=== PATIENT | male | born 1995 | race American Indian/Alaskan Native ===

== ENCOUNTER 2018-03-13 13:43 | Emergency (ER) | payer MEDICAID ==
[2018-03-13] MEDS ORDERED: ROCEPHIN IM ONE (16:23)
[2018-03-13] MEDS ORDERED: XYLOCAINE 1% MPF 5 mL INFILTRATI ONE (16:23)
[2018-03-13] MEDS ORDERED: FLAGYL PO ONE (16:23)
[2018-03-13] MEDS ORDERED: ZITHROMAX PO ONE (16:23)
--- NOTE | 2018-03-13 16:31 | Emergency Department Report ---
ED Male HPI - General Chief complaint: Medical Clearance Stated complaint: STD CHECK Time Seen by Provider: 03/13/18 16:17 Source: patient Mode of arrival: Ambulatory Limitations: No Limitations - History of Present Illness Initial comments: 22-year-old -[place] male comes in for complaint of penile discharge is white thick noticed sent toilet. He also complains of urinary urgency that he' s had over couple of weeks. He does admit to dysuria. He is sexually active with women unprotected for partners in the last 6 months no history of STDs. He does admit to oral sex. Has not had a HIV test. Patient reports no past medical history currently takes no medications has allergy to penicillin unknown. MD Complaint: penile discharge, dysuria -: days(s) (7 . On discharge), week(s) (couple weeks for urinary urgency) Location: penis Radiation: none Severity scale (0 -10): 0 Quality: burning Consistency: intermittent Improves with: none Worsens with: urination discharge. denies: swelling, mass, urinary retention, fever, nausea/vomiting, incontinence - Related Data Sexually active: Yes (with women for partners unprotected last 6 months) Previous Rx's Medication Instructions Recorded Last Taken Type Cephalexin [Keflex] 500 mg PO BID #14 capsule 03/13/18 Unknown Rx Allergies Allergy/AdvReac Type Severity Reaction Status Date / Time Penicillins Allergy Unknown Verified 03/13/18 14:11 ED Review of Systems ROS: Stated complaint: STD CHECK Other details as noted in HPI Constitutional: denies: chills, fever Eyes: denies: eye pain, eye discharge, vision change ENT: denies: ear pain, throat pain Respiratory: denies: cough, shortness of breath, wheezing Cardiovascular: denies: chest pain, palpitations Endocrine: no symptoms reported Gastrointestinal: denies: abdominal pain, nausea, diarrhea Genitourinary: urgency, dysuria, discharge Musculoskeletal: denies: back pain, joint swelling, arthralgia Skin: denies: rash, lesions Neurological: denies: headache, weakness, paresthesias Psychiatric: denies: anxiety, depression Hematological/Lymphatic: denies: easy bleeding, easy bruising ED Past Medical Hx - Social History Smoking Status: Current Every Day Smoker - Medications Home Medications: Home Medications Medication Instructions Recorded Confirmed Last Taken Type Cephalexin [Keflex] 500 mg PO BID #14 capsule 03/13/18 Unknown Rx ED Physical Exam - General Limitations: No Limitations General appearance: alert, in no apparent distress - Head Head exam: Present: atraumatic, normocephalic - Eye Eye exam: Present: normal appearance - ENT ENT exam: Present: mucous membranes moist - Neck Neck exam: Present: normal inspection - exam: Present: normal inspection - Extremities Exam Extremities exam: Present: normal inspection - Back Exam Back exam: Present: normal inspection - Neurological Exam Neurological exam: Present: alert, oriented X3 - Psychiatric Psychiatric exam: Present: normal affect, normal mood - Skin Skin exam: Present: warm, dry, intact, normal color. Absent: rash ED Course Vital Signs 03/13/18 14:07 Temperature 98.7 F Pulse Rate 52 L Respiratory 18 Rate Blood Pressure 123/74 O2 Sat by Pulse 99 Oximetry ED Medical Decision Making - Medical Decision Making Patient's been evaluated by this provider fast track. Discussed the patient we will do a urinalysis urine culture send off for chlamydia and gonorrhea. Discussed the patient we'll treat him with Rocephin 250 mg a days azithromycin 1 g, Flagyl 2 g. With discharge of Keflex 500 mg twice a day 7 days. Discussed the patient that he needs to follow-up with the health Department to have HIV test. He spent to patient that his partners could be having intercourse with other people increases his wrist coming out of HIV and syphilis and/or hepatitis C. Patient verbalized understanding Critical care attestation.: If time is entered above; I have spent that time in minutes in the direct care of this critically ill patient, excluding procedure time. ED Disposition Clinical Impression: Possible exposure to STD Disposition: DC-01 TO HOME OR SELFCARE Is pt being admited?: No Does the pt Need Aspirin: No Condition: Stable Instructions: Safe Sex (ED), Sexually Transmitted Diseases (ED) Additional Instructions: Please follow up with health department for HIV syphilis and hepatitis screening testing. Complete antibiotics as prescribed use condoms with intercourse. Prescriptions: Cephalexin [Keflex] 500 mg PO BID #14 capsule Referrals: CLARA SAWYER MD [Primary Care Provider] - 3-5 Days [facility] - [facility]5 Days [facility] [Outside] - 3-5 Days [facility] [Outside] - 3-5 Days [facility] [Outside] - [facility] - 3-5 Days
[2018-03-13 16:48] VITALS: BP 119/74
[2018-03-13 16:51] LABS: Bilirubin,Urine NEG (Negative); Blood,Urine NEG (Negative); Color,Urine Yellow (Yellow); Mucus,Urine FEW /HPF; Protein,Urine <15 mg/dL mg/dL (Negative); Urobilinogen,Urine < 2.0 mg/dL (<2.0)
== END 2018-03-13 16:46 | disposition home or self-care (01) ==
LOC: ED 13:43
DX: R39.15 Urgency of urination (principal); R30.0 Dysuria
CPT/HCPCS: 81001; 87086; 87591; 96372; 99283; J0696

== ENCOUNTER 2018-06-28 15:07 | Emergency (ER) | payer MEDICAID ==
[2018-06-28 15:18] VITALS: BP 122/73
[2018-06-28 18:20] LABS: Bilirubin,Urine NEG (Negative); Blood,Urine NEG (Negative); Color,Urine Yellow (Yellow); Mucus,Urine 1+ /HPF; Protein,Urine <15 mg/dL mg/dL (Negative); Urobilinogen,Urine < 2.0 mg/dL (<2.0)
--- NOTE | 2018-06-28 18:48 | Emergency Department Report ---
ED Medical Clearance HPI - General Chief complaint: Urogenital-Male Stated complaint: CHECK UP Time Seen by Provider: 06/28/18 17:50 Source: patient Mode of arrival: Ambulatory - History of Present Illness Initial comments: This is a 22-year-old male nontoxic, well nourished in appearance, no acute signs of distress presents to the ED for a check-up of STD. Patient denies any testicular pain or swelling. Patient denies any penile ulcers, discharge, or lesions. Patient denies any nausea, vomiting, chest pain, shortness of breathe, fever, chills, headache, back pain, numbness, tingling, stiff neck. Patient stated that his girlfriend has been positive for yeast infection. Patient denies any urinary symptoms. Patient denies any allergies or PMH. Traumatic Symptoms: denies traumatic injury Associated Symptoms: denies other symptoms. denies: chest pain, shortness of breath, palpitations, diaphoresis, confusion, cough, fever/chills, headaches, anorexia, malaise, nausea/vomiting, rash, seizure, syncope, weakness Treatments Prior to Arrival: none Home medications: Previous Rx's Medication Instructions Recorded Last Taken Type Cephalexin [Keflex] 500 mg PO BID #14 capsule 03/13/18 Unknown Rx Allergies/Adverse reactions: Allergies Allergy/AdvReac Type Severity Reaction Status Date / Time Penicillins Allergy Unknown Verified 03/13/18 14:11 ED Review of Systems ROS: Stated complaint: CHECK UP Other details as noted in HPI Constitutional: denies: chills, fever Eyes: denies: eye pain, eye discharge, vision change ENT: denies: ear pain, throat pain Respiratory: denies: cough, shortness of breath, wheezing Cardiovascular: denies: chest pain, palpitations Endocrine: no symptoms reported Gastrointestinal: denies: abdominal pain, nausea, diarrhea Genitourinary: denies: urgency, dysuria Musculoskeletal: denies: back pain, joint swelling, arthralgia Skin: denies: rash, lesions Neurological: denies: headache, weakness, paresthesias Psychiatric: denies: anxiety, depression Hematological/Lymphatic: denies: easy bleeding, easy bruising ED Past Medical Hx - Past Medical History Previous Medical History?: No - Surgical History Past Surgical History?: No - Social History Smoking Status: Current Every Day Smoker Substance Use Type: Alcohol - Medications Home Medications: Home Medications Medication Instructions Recorded Confirmed Last Taken Type Cephalexin [Keflex] 500 mg PO BID #14 capsule 03/13/18 Unknown Rx ED Physical Exam - General Limitations: No Limitations General appearance: alert, in no apparent distress - Head Head exam: Present: atraumatic, normocephalic - Eye Eye exam: Present: normal appearance - ENT ENT exam: Present: mucous membranes moist - Neck Neck exam: Present: normal inspection - Respiratory Respiratory exam: Present: normal lung sounds bilaterally. Absent: respiratory distress - Cardiovascular Cardiovascular Exam: Present: regular rate, normal rhythm. Absent: systolic murmur, diastolic murmur, rubs, gallop - GI/Abdominal GI/Abdominal exam: Present: soft, normal bowel sounds - Rectal Rectal exam: Present: deferred - Extremities Exam Extremities exam: Present: normal inspection - Back Exam Back exam: Present: normal inspection - Neurological Exam Neurological exam: Present: alert, oriented X3 - Psychiatric Psychiatric exam: Present: normal affect, normal mood - Skin Skin exam: Present: warm, dry, intact, normal color. Absent: rash ED Course Vital Signs 06/28/18 15:14 Temperature 98.2 F Pulse Rate 54 L Respiratory 16 Rate Blood Pressure 122/73 O2 Sat by Pulse 99 Oximetry - Reevaluation(s) Reevaluation #1: 06/28/18 18:49 Patient is speaking in full sentences with no signs of distress noted. ED Medical Decision Making - Medical Decision Making this is a 22-year-old male that presents with a checkup. UA obtained and within normal limits. Gonorrhea chlamydia pending. Patient was instructed to return and 3 days for gonorrhea chlamydia results. Patient currently denies any symptoms. Patient was referred to Follow-up with a primary care doctor in 3 -5 days or if symptoms worsen and continue return to emergency room as soon as possible. At time of discharge, the patient does not seem toxic or ill in appearance. No acute signs of distress noted. Patient agrees to discharge treatment plan of care. No further questions noted by the patient. ED Disposition Clinical Impression: Possible exposure to STD Disposition: DC-01 TO HOME OR SELFCARE Is pt being admited?: No Does the pt Need Aspirin: No Condition: Stable Instructions: Safe Sex (ED) Additional Instructions: Follow-up with a primary care doctor in 3-5 days or if symptoms worsen and continue return to emergency room as soon as possible. Return in 3-5 days for gonorrhea and chlamydia results. Referrals: PRIMARY CARE, [Primary Care Provider] - 3-5 Days ELAN SAUL MD [Staff Physician] - 3-5 Days [facility] [Outside] - 3-5 Days [facility] [Outside] - 3-5 Days Forms: Work/School Release Form(ED)
== END 2018-06-28 19:01 | disposition home or self-care (01) ==
LOC: ED 15:07
DX: Z20.2 Contact with and (suspected) exposure to infections with a predominantly sexual mode of transmission (principal); F17.200 Nicotine dependence, unspecified, uncomplicated; Z88.0 Allergy status to penicillin
CPT/HCPCS: 81001; 87591; 99283

== ENCOUNTER 2018-12-02 16:24 | Emergency (ER) | payer MEDICAID | END 2018-12-02 21:20 | disposition left against medical advice (07) | LOC: ED 16:24 ==